=== PATIENT | female | born 1965 | race Caucasian/White ===

== ENCOUNTER 2017-03-20 22:40 | Emergency (ER) | payer OTHER, SELFPAY ==
--- NOTE | 2017-03-26 07:51 | ER ---
ADMIT: 03/20/2017 RM/LOC: ER [facility] MR#: [id number] [address] [id number] LARA CRUZANDRE Hardy [address] [place] [address] Emergency Room Report SEX: F AGE: 51 : 1965 DATE: 03/20/2017 CHIEF COMPLAINT: Abdominal pain. HISTORY OF PRESENT ILLNESS: This is a pleasant 51-year-old, white female, who presents to the department with a day's duration of epigastric pain. States she has never had pain like this in the past, acutely hit her, today with some epigastric pain and bloating. States it is intermittent episodes, rates it at the worst 7/10. At rest, she has no pain. Described it as a burning, sharp, stabbing, epigastric pain. Does have a known history of hiatal hernia. States she has had pain with this in the past; however, it has been pretty stable in the last few years, does have some secondary reflux from this, but states this is not heartburn-like pain. Denies any fevers, chills, nausea, vomiting. Does have IBS, her bowels have been consistent with her normal pattern of constipation and diarrhea. She does have loss of appetite. States the pain is worse with food, has not find anything to make this better. PAST MEDICAL HISTORY: Hypothyroidism. COURSE IN THE EMERGENCY ROOM: PHYSICAL EXAMINATION: GENERAL: The patient was seen and examined. She is afebrile, nontoxic, in no acute distress. NECK: Soft and supple. LUNGS: No respiratory distress. No wheezes, rhonchi, or rales. HEART: Regular. ABDOMEN: Soft. She does have some epigastric tenderness. No right upper quadrant tenderness. Negative Omer sign. No McBurney's point tenderness. No guarding or rebound. Normal bowel sounds. SKIN: Warm and dry. EXTREMITIES: Nontender. No pedal edema. NEUROLOGICAL: She is alert and oriented. DIAGNOSTIC DATA: Did get some laboratory studies on her today shows white count 8.1, hemoglobin 13.4, hematocrit 39.7, platelets 325. Sodium 143, potassium 3.9, glucose 98, creatinine 1.0, bilirubin 0.3, ALT 40, AST 27. Did get a KUB on her showing nonspecific gas pattern, no concern for obstruction, no air-fluid levels. She was given a GI cocktail in the department, which she states mildly relieved her pain; however, it did not completely resolve it. She was also given Zofran 4 mg ODT prior to discharge. IMPRESSION: ADMIT: 03/20/2017 RM/LOC: [facility] MR#: [id number] [address] [id number] GENE CRUZ [address] [place] [address] Emergency Room Report SEX: F AGE: 51 : 1965 1. Epigastric abdominal pain. 2. Hiatal hernia. DISPOSITION: The patient was given a script for Tennyson 5/325 mg one to two tabs every 4 to 6 hours as needed for pain, #8. She is to continue monitor signs and symptoms for any worsening. Certainly, return with any nausea, vomiting, increase temperature, inability to tolerate oral feedings, or other concerning signs or symptoms. Use Tylenol or Motrin as needed for pain. I cautioned her while driving if she is going to use narcotics not to double up on the Tylenol, return home and rest. Increase fluids as tolerated. Follow up with her primary care provider in the next week. Questions were sought and answered to the best of my ability to the patient's satisfaction. Discharged in stable condition. VIRGINIE Sherman / Anthony Steven MD / papo JOB #: [id number] CC: Anthony Steven MD, Attending Physician
== END 2017-03-21 01:10 | disposition home or self-care (01) ==
LOC: ER 22:40
DX: K44.9 Diaphragmatic hernia without obstruction or gangrene (principal); E03.9 Hypothyroidism, unspecified; Z90.710 Acquired absence of both cervix and uterus; Z79.899 Other long term (current) drug therapy

== ENCOUNTER → 2017-03-27 | Outpatient (CLI) | payer OTHER | END | disposition home or self-care (01) | LOC: RAD.S 09:45 | DX: R10.11 Right upper quadrant pain (principal) ==